=== PATIENT | female | born 1990 | race Caucasian/White ===

== ENCOUNTER 2019-11-12 13:23 | Emergency (ER) | payer BC ==
--- NOTE | 2019-11-12 13:38 | EDM.PDOC ---
ED HPI GENERAL MEDICAL PROBLEM - General Chief Complaint: Neurological Problem Stated Complaint: LOW BP Time Seen by Provider: 11/12/19 13:30 Source of Information: Reports: Patient History Limitations: Reports: No Limitations - History of Present Illness INITIAL COMMENTS - FREE TEXT/NARRATIVE: Patient's unfortunate 29-year-old female who presents emergency Department today with complaint of cough with productive yellow sputum. Patient reports that symptoms started 3 weeks ago at which time she was diagnosed with flu B and since that time she's continued to have cough congestion runny nose no fever positive fatigue no body aches no chills. Patient was seen at the urgent care 5 days ago at which time she was told she had a "lung infection" and she was prescribed doxycycline. Since that time she's continued to have cough congestion runny nose and productive yellow sputum. No nausea, no vomiting , no chest pain, no shortness of breath, no fever, no chills - Related Data Allergies Allergy/AdvReac Type Severity Reaction Status Date / Time clarithromycin [From Biaxin] Allergy Vomiting Verified 12/10/17 17:58 hydrocodone Allergy Vomiting Verified 12/10/17 17:58 Home Meds: Home Meds Cefuroxime Axetil [Ceftin] 500 mg PO BID #20 tablet 11/12/19 [Rx] Doxycycline [Vibramycin] 100 mg PO BID 11/12/19 [History] guaiFENesin/Codeine Phosphate [Guaifenesin AC Cough Syrup] 5 ml PO BEDTIME 11/12 [History] ED ROS GENERAL - Review of Systems Review Of Systems: See Below Constitutional: Denies: Fever, Chills Respiratory: Reports: Cough, Sputum. Denies: Shortness of Breath, Wheezing Cardiovascular: Denies: Chest Pain Endocrine: Reports: Fatigue ED EXAM, GENERAL - Physical Exam Exam: See Below Exam Limited By: No Limitations General Appearance: Alert, WD/WN, Mild Distress Ears: Normal External Exam, Normal Canal, Hearing Grossly Normal, Normal TMs Throat/Mouth: Normal Inspection, Normal Lips, Normal Teeth, Normal Gums, Normal Voice, No Airway Compromise, Other (Mild pharyngeal erythema) Head: Atraumatic, Normocephalic, Other (Positive transillumination bilateral maxillary sinus) Neck: Normal Inspection, Supple, Non-Tender, Full Range of Motion Respiratory/Chest: No Respiratory Distress, Other (Bronchial breath sounds ) Cardiovascular: Normal Peripheral Pulses, Regular Rate, Rhythm, No Edema, No Gallop, No JVD, No Murmur, No Rub GI/Abdominal: Normal Bowel Sounds, Soft, Non-Tender, No Organomegaly, No Distention, No Abnormal Bruit, No Mass Back Exam: Normal Inspection, Full Range of Motion Extremities: Normal Inspection, Normal Range of Motion, Non-Tender, Normal Capillary Refill, No Pedal Edema Neurological: Alert Skin Exam: Warm, Dry Course - Vital Signs Last Recorded V/S: Last Vital Signs Temp 97.9 F 11/12/19 13:30 Pulse 71 11/12/19 13:30 Resp 20 11/12/19 13:30 BP 133/90 11/12/19 13:30 Pulse Ox 98 11/12/19 13:30 - Orders/Labs/Meds Orders: Active Orders 24 hr Category Date Time Status Chest 2V [CR] Stat Exams 11/12/19 13:34 Taken - Re-Assessments/Exams Free Text/Narrative Re-Assessment/Exam: 11/12/19 13:53 Chest x-ray interpreted by me NAD Departure - Departure Time of Disposition: 13:53 Disposition: Home, Self-Care 01 Clinical Impression: Acute sinusitis Qualifiers: Sinusitis location: other Recurrence: not specified as recurrent Qualified Code (s): J01.80 - Other acute sinusitis - Discharge Information Prescriptions: Cefuroxime Axetil [Ceftin] 500 mg PO BID #20 tablet Referrals: PCP,None [Primary Care Provider] - Forms: ED Department Discharge Additional Instructions: Home, rest, stop doxycycline, return as needed for worsening condition Sepsis Event Note - Evaluation Sepsis Screening Result: No Definite Risk - Focused Exam Vital Signs: Vital Signs Temp Pulse Resp BP Pulse Ox 11/12/19 13:30 97.9 F 71 20 133/90 98 Date Exam was Performed: 11/12/19 Time Exam was Performed: 13:53 - My Orders Last 24 Hours: My Active Orders 11/12/19 13:34 Chest 2V [CR] Stat - Assessment/Plan Last 24 Hours: My Active Orders 11/12/19 13:34 Chest 2V [CR] Stat
[2019-11-12] MEDS ORDERED: Dexamethasone 4 MG/ML 5 ML MDV IM ONE (14:18)
--- NOTE | 2019-11-12 14:31 | CR ---
Chest: PA and lateral views of the chest were obtained. Comparison: No previous chest x-ray. Heart size and mediastinum are normal. Lungs are clear. Minimal scoliosis is noted within the spine. Impression: 1. Nothing acute is seen on 2 view chest x-ray. Diagnostic code #2 This report was dictated in [place] Standard Time
== END 2019-11-12 14:27 | disposition home or self-care (01) ==
LOC: JD.ED 13:23
DX: J01.80 Other acute sinusitis (principal); Z88.6 Allergy status to analgesic agent; Z88.1 Allergy status to other antibiotic agents
CPT/HCPCS: 71046; 96372; 99283; J1100; 99282

== ENCOUNTER 2022-09-08 22:56 | Emergency (ER) | payer BC ==
[2022-09-08] MEDS ORDERED: Codeine/Promethazine 10-6.25 MG/5 ML Syrup 5 ML UD Cup PO ONE (23:21)
[2022-09-08 23:53] LABS: CORONAVIRUS COVID-19 NAA NEGATIVE (NEGATIVE)
== END 2022-09-09 01:03 | disposition home or self-care (01) ==
LOC: JD.ED 22:56
DX: J10.1 Influenza due to other identified influenza virus with other respiratory manifestations (principal); J45.909 Unspecified asthma, uncomplicated; Z88.1 Allergy status to other antibiotic agents; Z88.5 Allergy status to narcotic agent; Z20.822 Contact with and (suspected) exposure to COVID-19
CPT/HCPCS: 0241U; 36415; 80053; 85025; 86140; 99285; A9270; 71046-26